=== PATIENT | female | born 1955 | race Caucasian/White ===

== ENCOUNTER 2018-06-23 07:19 | Day surgery (SDC) | payer MEDICARE, MEDICAID ==
[~2018-06-23 07:19] MED LIST: Cefuroxime 10 MG/ML SYRINGE EYELF SCH; Lidocaine 1% PF 2 ML SDV INJECT SCH; Pilocarpine 4% Ophth Soln 15 ML Bot EYELF SCH
--- NOTE | 2018-06-23 07:42 | PCM.PREANE ---
Preanesthetic Assessment - Anesthesia/Transfusion/Family Hx Anesthesia History: Prior Anesthesia Without Reaction Family History of Anesthesia Reaction: No Transfusion History: No Prior Transfusion(s) - Review of Systems General: No Symptoms Pulmonary: No Symptoms Cardiovascular: No Symptoms Gastrointestinal: No Symptoms Neurological: No Symptoms Other: Reports: None - Physical Assessment NPO Status Date: 06/22/18 NPO Status Time: 22:00 Pulse: 96 O2 Sat by Pulse Oximetry: 95 Respiratory Rate: 16 Blood Pressure: 153/92 Temperature: 97.4 C Height: 1.4 m Weight: 51.256 kg ASA Class: 2 Mental Status: Alert & Oriented x3 Airway Class: Mallampati = 2 Dentition: Reports: Normal Dentition Thyro-Mental Finger Breadths: 3 Mouth Opening Finger Breadths: 3 ROM/Head Extension: Full Lungs: Clear to Auscultation, Normal Respiratory Effort Cardiovascular: Regular Rate, Regular Rhythm - Allergies Allergies/Adverse Reactions: Allergies Allergy/AdvReac Type Severity Reaction Status Date / Time atorvastatin [From Lipitor] Allergy Chest Pain Verified 06/22/18 14:45 fentanyl Allergy Numbness Verified 06/22/18 14:45 - Acknowledgements Anesthesia Type Planned: MAC Pt an Appropriate Candidate for the Planned Anesthesia: Yes Alternatives and Risks of Anesthesia Discussed w Pt/Guardian: Yes Pt/Guardian Understands and Agrees with Anesthesia Plan: Yes PreAnesthesia Questionnaire HEENT History: Reports: Cataract Cardiovascular History: Reports: High Cholesterol, Hypertension Respiratory History: Reports: None Gastrointestinal History: Reports: GERD (takes OTC with relief) Genitourinary History: Reports: None Musculoskeletal History: Reports: Arthritis, Osteoarthritis, Other (See Below) ( osteogenisis imperfecta-uses walker) Neurological History: Reports: None Psychiatric History: Reports: None Endocrine/Metabolic History: Reports: None - Past Surgical History Head Surgeries/Procedures: Reports: None HEENT Surgical History: Reports: Tonsillectomy GI Surgical History: Reports: Colonoscopy Neurological Surgical History: Reports: Other (See Below) (Davide ruiz) Musculoskeletal Surgical History: Reports: Shoulder Replacement ((L)), Other ( See Below) ((L) ankle) - SUBSTANCE USE Smoking Status *Q: Never Smoker - HOME MEDS Home Medications: Home Meds Lisinopril 20 mg PO DAILY 06/22/18 [History] Meloxicam 15 mg PO DAILY 06/22/18 [History] Morphine [MS Contin] 15 mg PO BID 06/22/18 [History] Morphine [MS Contin] 30 mg PO BID 06/22/18 [History] Rosuvastatin [Crestor] 5 mg PO DAILY 06/22/18 [History] Venlafaxine [Effexor XR] 75 mg PO DAILY 06/22/18 [History] - CURRENT (IN HOUSE) MEDS Current Meds: Current Medications Brimonidine Tartrate (Alphagan 0.2% Ophth Soln) 0 ml EYELF ASDIRECTED NORMAN Stop: 06/23/18 18:00 Cefuroxime Sodium (Zinacef) 0 mg EYELF ASDIRECTED NORMAN Stop: 06/23/18 18:00 Lidocaine HCl (Xylocaine-Mpf 1%) 0 ml INJECT ASDIRECTED NORMAN Stop: 06/23/18 18:00 Phenylephrine HCl (Ramez-Synephrine 2.5% Ophth Soln) 0 ml EYELF ASDIRECTED NORMAN Stop: 06/23/18 18:00 Pilocarpine HCl (Pilocar 4% Ophth Soln) 0 ml EYELF ASDIRECTED NORMAN Stop: 06/23/18 18:00 Polymyxin/Trimethoprim Sulfate (Polytrim Ophth Soln) 0 ml EYELF ASDIRECTED NORMAN Stop: 06/23/18 18:00 Tetracaine HCl (Tetracaine 0.5% Steri-Unit Gertrudis) 0 ml EYELF ASDIRECTED NORMAN Stop: 06/23/18 18:00 Tropicamide (Mydriacyl 1% Ophth Soln) 0 ml EYELF ASDIRECTED NORMAN Stop: 06/23/18 18:00
[2018-06-23] MEDS: Polymyxin B/Trimethoprim 10 ML Bottle EYELF SCH ×3 (08:00→09:02)
[2018-06-23] MEDS: Brimonidine 0.2% Ophth Soln 5 ML Bottle EYELF SCH ×3 (08:03→09:02)
[2018-06-23] MEDS: Phenylephrine 2.5% Ophth Soln 2 ML Bot EYELF SCH ×5 (08:06→08:41)
[2018-06-23] MEDS: Tropicamide 1% Ophth Soln 15 ML Bottle EYELF SCH ×4 (08:09→08:33)
[2018-06-23] MEDS: Tetracaine HCl/PF 0.5% 4 ML Bottle EYELF SCH ×4 (08:35→08:52)
--- NOTE | 2018-06-23 09:01 | PCM48HPAN ---
Post Anesthesia Note - EVALUATION WITHIN 48HRS OF ANESTHETIC Vital Signs in Normal Range: Yes Patient Participated in Evaluation: Yes Respiratory Function Stable: Yes Airway Patent: Yes Cardiovascular Function Stable: Yes Hydration Status Stable: Yes Pain Control Satisfactory: Yes Nausea and Vomiting Control Satisfactory: Yes Mental Status Recovered: Yes Pulse Rate: 98 SaO2: 96 Resp Rate: 17 Temperature: 97.4 C Blood Pressure: 139/91
== END 2018-06-23 09:19 | disposition home or self-care (01) ==
LOC: JD.SDS 07:19
PROVIDERS: ATTEND Ophthalmology
DX: H25.813 Combined forms of age-related cataract, bilateral (principal); H35.341 Macular cyst, hole, or pseudohole, right eye; H35.3131 Nonexudative age-related macular degeneration, bilateral, early dry stage; H35.373 Puckering of macula, bilateral; H50.05 Alternating esotropia; I10 Essential (primary) hypertension; E78.00 Pure hypercholesterolemia, unspecified; M19.90 Unspecified osteoarthritis, unspecified site; Z88.8 Allergy status to other drugs, medicaments and biological substances; Z79.1 Long term (current) use of non-steroidal anti-inflammatories (NSAID); Z79.891 Long term (current) use of opiate analgesic; Z79.899 Other long term (current) drug therapy
CPT/HCPCS: 66984; A9270; C1780; J0697; J2001

== ENCOUNTER 2018-07-21 10:13 | Day surgery (SDC) | payer MEDICARE, MEDICAID ==
[~2018-07-21 10:13] MED LIST changes: -Cefuroxime 10 MG/ML SYRINGE EYELF SCH; +Cefuroxime 10 MG/ML SYRINGE EYERT SCH; -Pilocarpine 4% Ophth Soln 15 ML Bot EYELF SCH; +Pilocarpine 4% Ophth Soln 15 ML Bot EYERT SCH
[2018-07-21] MEDS ORDERED: LORazepam 0.5 MG Tab PO SCH (10:55)
[2018-07-21] MEDS: Polymyxin B/Trimethoprim 10 ML Bottle EYERT SCH ×3 (10:57→13:00)
[2018-07-21] MEDS: Brimonidine 0.2% Ophth Soln 5 ML Bottle EYERT SCH ×2 (11:02→11:50)
[2018-07-21] MEDS: Phenylephrine 2.5% Ophth Soln 2 ML Bot EYERT SCH ×5 (11:07→12:41)
[2018-07-21] MEDS: Tropicamide 1% Ophth Soln 15 ML Bottle EYERT SCH ×4 (11:12→12:13)
--- NOTE | 2018-07-21 11:15 | PCM.PREANE ---
Preanesthetic Assessment - Procedure Proposed Procedure: cataract right eye - Anesthesia/Transfusion/Family Hx Anesthesia History: Prior Anesthesia Without Reaction Family History of Anesthesia Reaction: No Transfusion History: No Prior Transfusion(s) - Review of Systems General: No Symptoms Pulmonary: No Symptoms Cardiovascular: No Symptoms Gastrointestinal: No Symptoms Neurological: No Symptoms Other: Reports: None - Physical Assessment NPO Status Date: 07/21/18 NPO Status Time: 04:00 (cookie and coffee) Pulse: 93 O2 Sat by Pulse Oximetry: 97 Respiratory Rate: 16 Blood Pressure: 152/93 Height: 4 ft 7 in Weight: 50.802 kg ASA Class: 2 Mental Status: Alert & Oriented x3 Airway Class: Mallampati = 1 Dentition: Reports: Broken Tooth/Teeth, Missing Tooth/Teeth, Caries Thyro-Mental Finger Breadths: 3 Mouth Opening Finger Breadths: 3 ROM/Head Extension: Full Lungs: Clear to Auscultation, Normal Respiratory Effort Cardiovascular: Regular Rate, Regular Rhythm - Allergies Allergies/Adverse Reactions: Allergies Allergy/AdvReac Type Severity Reaction Status Date / Time atorvastatin [From Lipitor] AdvReac Chest Pain Verified 07/21/18 11:06 fentanyl AdvReac Numbness Verified 07/21/18 11:06 - Blood Blood Available: No - Acknowledgements Anesthesia Type Planned: MAC Pt an Appropriate Candidate for the Planned Anesthesia: Yes Alternatives and Risks of Anesthesia Discussed w Pt/Guardian: Yes Pt/Guardian Understands and Agrees with Anesthesia Plan: Yes PreAnesthesia Questionnaire HEENT History: Reports: Cataract Cardiovascular History: Reports: High Cholesterol, Hypertension Respiratory History: Reports: None Gastrointestinal History: Reports: GERD (takes OTC with relief) Genitourinary History: Reports: None Musculoskeletal History: Reports: Arthritis, Osteoarthritis, Other (See Below) ( osteogenisis imperfecta-uses walker) Neurological History: Reports: None Psychiatric History: Reports: None Endocrine/Metabolic History: Reports: None - Past Surgical History Head Surgeries/Procedures: Reports: None HEENT Surgical History: Reports: Tonsillectomy GI Surgical History: Reports: Colonoscopy Neurological Surgical History: Reports: Other (See Below) (Davide ruiz) Musculoskeletal Surgical History: Reports: Shoulder Replacement ((L)), Other ( See Below) ((L) ankle) - SUBSTANCE USE Smoking Status *Q: Never Smoker Tobacco Use Within Last Twelve Months: No Second Hand Smoke Exposure: No Days Per Week of Alcohol Use: 0 Recreational Drug Use History: No - HOME MEDS Home Medications: Home Meds Lisinopril 20 mg PO DAILY 06/22/18 [History] Meloxicam 15 mg PO DAILY 06/22/18 [History] Morphine [MS Contin] 15 mg PO BID 06/22/18 [History] Morphine [MS Contin] 30 mg PO BID 06/22/18 [History] Rosuvastatin [Crestor] 5 mg PO DAILY 06/22/18 [History] Venlafaxine [Effexor XR] 75 mg PO DAILY 06/22/18 [History] Lutein/Minerals/Vit A,C & E [Ocuvite] 1 tab PO DAILY 07/20/18 [History] - CURRENT (IN HOUSE) MEDS Current Meds: Current Medications Brimonidine Tartrate (Alphagan 0.2% Ophth Soln) 0 ml EYERT ASDIRECTED NORMAN Stop: 07/21/18 23:00 Last Admin: 07/21/18 11:02 Dose: 1 drop Cefuroxime Sodium (Zinacef) 0 mg EYERT ASDIRECTED NORMAN Stop: 07/21/18 23:00 Lidocaine HCl (Xylocaine-Mpf 1%) 0 ml INJECT ASDIRECTED NORMAN Stop: 07/21/18 23:00 Lorazepam (Ativan) 0.5 mg PO ONETIME NORMAN Stop: 07/21/18 18:00 Last Admin: 07/21/18 11:01 Dose: 0.5 mg Phenylephrine HCl (Ramez-Synephrine 2.5% Ophth Soln) 0 ml EYERT ASDIRECTED NORMAN Stop: 07/21/18 23:00 Last Admin: 07/21/18 11:07 Dose: 1 drop Pilocarpine HCl (Pilocar 4% Ophth Soln) 0 ml EYERT ASDIRECTED NORMAN Stop: 07/21/18 23:00 Polymyxin/Trimethoprim Sulfate (Polytrim Ophth Soln) 0 ml EYERT ASDIRECTED NORMAN Stop: 07/21/18 23:00 Last Admin: 07/21/18 10:57 Dose: 1 drop Tetracaine HCl (Tetracaine 0.5% Steri-Unit Gertrudis) 0 ml EYERT ASDIRECTED NORMAN Stop: 07/21/18 23:00 Tropicamide (Mydriacyl 1% Ophth Soln) 0 ml EYERT ASDIRECTED NORMAN Stop: 07/21/18 23:00
[2018-07-21] MEDS: Tetracaine HCl/PF 0.5% 4 ML Bottle EYERT SCH ×5 (12:25→13:00)
--- NOTE | 2018-07-21 13:05 | PCM48HPAN ---
Post Anesthesia Note - EVALUATION WITHIN 48HRS OF ANESTHETIC Vital Signs in Normal Range: Yes Patient Participated in Evaluation: Yes Respiratory Function Stable: Yes Airway Patent: Yes Cardiovascular Function Stable: Yes Hydration Status Stable: Yes Pain Control Satisfactory: Yes Nausea and Vomiting Control Satisfactory: Yes Mental Status Recovered: Yes Pulse Rate: 96 SaO2: 96 Resp Rate: 20 Blood Pressure: 142/92
== END 2018-07-21 13:10 | disposition home or self-care (01) ==
LOC: JD.SDS 10:13
PROVIDERS: ATTEND Ophthalmology
DX: H25.811 Combined forms of age-related cataract, right eye (principal); I10 Essential (primary) hypertension; E78.00 Pure hypercholesterolemia, unspecified; M19.90 Unspecified osteoarthritis, unspecified site; H52.31 Anisometropia; H35.373 Puckering of macula, bilateral; H50.05 Alternating esotropia; Z98.42 Cataract extraction status, left eye; Z96.1 Presence of intraocular lens; Z79.899 Other long term (current) drug therapy
CPT/HCPCS: 66984; A9270; J0697; J2001; C1780

== ENCOUNTER 2019-12-20 20:50 | Emergency (ER) | payer MEDICARE, MEDICAID ==
[2019-12-20] MEDS ORDERED: Diphtheria,Pertussis(Acell),Tetanus Vaccine 0.5 ML Syringe IM ONE (21:27)
[2019-12-20] MEDS ORDERED: Lidocaine 1% 10 ML MDV INJECT ONE (21:27)
--- NOTE | 2019-12-20 21:33 | EDM.PDOC ---
ED HPI GENERAL MEDICAL PROBLEM - General Chief Complaint: Upper Extremity Injury/Pain Stated Complaint: ARM INJURY Time Seen by Provider: 12/20/19 21:11 Source of Information: Reports: Patient, RN Notes Reviewed History Limitations: Reports: No Limitations - History of Present Illness INITIAL COMMENTS - FREE TEXT/NARRATIVE: Patient is a 64-year-old female who presents to the ED for the evaluation of her right wrist pain. Patient notes that she has a history of osteogenesis imperfecta. She states that tonight she tripped and fell, this resulted in a right wrist injury, and a laceration to the crown of her head. She did not have any loss of consciousness, and she is not on any blood thinners. This laceration is roughly 2 cm in length, and fairly linear. This is oozing blood at the time of triage. There is bruising noted to the dorsal surface of the right wrist, and a slight deformity is noted. Patient states she can still wiggle her fingers, however is very painful to do so. She denies any numbness or tingling into her hand. Patient notes she is right-hand dominant, she cannot remember the last time she had a tetanus booster. Patient states that she is p rescribed MS Contin, and took 45 mg prior to coming to the ER. States that this did help the pain. Otherwise she complains of no sick-like symptoms, fever/chills, cough/shortness of breath, nausea/vomiting/diarrhea. Right Wrist Pain Score (Numeric/FACES): 5 - Related Data Allergies Allergy/AdvReac Type Severity Reaction Status Date / Time atorvastatin [From Lipitor] AdvReac Chest Pain Verified 07/21/18 11:06 fentanyl AdvReac Numbness Verified 07/21/18 11:06 Home Meds: Home Meds Lisinopril 20 mg PO DAILY 06/22/18 [History] Meloxicam 15 mg PO DAILY 06/22/18 [History] Morphine [MS Contin] 15 mg PO BID 06/22/18 [History] Morphine [MS Contin] 30 mg PO BID 06/22/18 [History] Rosuvastatin [Crestor] 5 mg PO DAILY 06/22/18 [History] Venlafaxine [Effexor XR] 75 mg PO DAILY 06/22/18 [History] Lutein/Minerals/Vit A,C & E [Ocuvite] 1 tab PO DAILY 07/20/18 [History] Past Medical History HEENT History: Reports: Cataract Cardiovascular History: Reports: High Cholesterol, Hypertension Gastrointestinal History: Reports: GERD Musculoskeletal History: Reports: Arthritis, Osteoarthritis, Other (See Below) - Past Surgical History HEENT Surgical History: Reports: Tonsillectomy GI Surgical History: Reports: Colonoscopy Neurological Surgical History: Reports: Other (See Below) Musculoskeletal Surgical History: Reports: Shoulder Replacement, Other (See Below) Social & Family History - Tobacco Use Smoking Status *Q: Never Smoker Review of Systems - Review of Systems Review Of Systems: Comprehensive ROS is negative, except as noted in HPI. ED EXAM, GENERAL - Physical Exam Exam: See Below Exam Limited By: No Limitations General Appearance: Alert, WD/WN, No Apparent Distress Eye Exam: Bilateral Eye: EOMI, Normal Inspection, PERRL Ears: Normal External Exam, Normal Canal, Hearing Grossly Normal, Normal TMs Nose: Normal Inspection Throat/Mouth: Normal Inspection, Normal Lips, Normal Teeth, Normal Gums, Normal Oropharynx, Normal Voice, No Airway Compromise Head: Normocephalic, Other (2cm linear laceration to crown of head) Neck: Normal Inspection, Supple, Non-Tender, Full Range of Motion Respiratory/Chest: No Respiratory Distress, Lungs Clear, Normal Breath Sounds, No Accessory Muscle Use, Chest Non-Tender Cardiovascular: Normal Peripheral Pulses, Regular Rate, Rhythm, No Murmur Peripheral Pulses: 2+: Radial (L), Radial (R) Extremities: Normal Capillary Refill, Limited Range of Motion (d/t pain in right wrist) Neurological: Alert, Oriented, Normal Cognition, No Motor/Sensory Deficits Psychiatric: Normal Affect, Normal Mood Skin Exam: Warm, Dry, Normal Color, No Rash, Ecchymosis (noted to dorsal surface of right wrist), Wound/Incision (2cm linear laceration to the crown of her head) ED TRAUMA EXTREMITY PROCEDURES - Laceration/Wound Repair Posterior [place] Head Lac/Wound Length In cm: 2 Appearance: Linear, Clean Distal NVT: Neuro & Vascular Intact, No Tendon Injury Anesthetic Type: Local Local Anesthesia - Lidocaine (Xylocaine): 1% Plain Skin Prep: Chlorhexidine (Hibiciens), Saline Exploration/Debridement/Repair: Wound Explored, In a Bloodless Field, Explored to Base, No Foreign Material Found Closed With: Aravind (4) Sterile Dressing Applied: Nurse Tetanus Status Addressed: Yes (updated at today's visit) Complications: No - Splinting Right Upper Extremity Splint Site: right wrist Pre-Procedure NV Status: Normal Post-Procedure NV Status: Normal Splint Material: Fiberglass Splint Design: Gutter (ulnar gutter) Applied & Form Fitted By: Provider, Nurse Provider Post-Splint Application NV Check: NV Status Normal, Good Position Complications: No Course - Vital Signs Last Recorded V/S: Last Vital Signs Temp 97.2 F 12/20/19 21:14 Pulse 92 12/20/19 21:14 Resp 16 12/20/19 21:14 BP 125/88 12/20/19 21:14 Pulse Ox 98 12/20/19 21:14 - Orders/Labs/Meds Orders: Active Orders 24 hr Category Date Time Status Vaccines to be Administered [RC] PER UNIT ROUTINE Care 12/20/19 21:27 Ordered Wrist Comp Min 3V Rt [CR] Stat Exams 12/20/19 21:21 Ordered Meds: Medications Discontinued Medications Generic Name Dose Route Start Last Admin Trade Name Pricilla PRN Reason Stop Dose Admin Diphtheria/Tetanus/Acell Pertussis 0.5 ml 12/20/19 21:27 12/20/19 21:43 Adacel IM 12/20/19 21:28 Not Given .ONCE ONE Lidocaine HCl 10 ml 12/20/19 21:27 Xylocaine 1% INJECT 12/20/19 21:28 ONETIME ONE Departure - Departure Time of Disposition: 22:24 Disposition: Home, Self-Care 01 Condition: Good Clinical Impression: Laceration of head Qualifiers: Encounter type: initial encounter Location of open wound of head: scalp Foreign body presence: without foreign body Qualified Code(s): S01.01XA - Laceration without foreign body of scalp, initial encounter Distal radial fracture Qualifiers: Encounter type: initial encounter Fracture type: closed Fracture morphology: unspecified fracture morphology Laterality: right Qualified Code(s): S52.501A - Unspecified fracture of the lower end of right radius, initial encounter for closed fracture Fracture of right ulnar styloid Qualifiers: Encounter type: initial encounter Fracture type: closed Fracture alignment: nondisplaced Qualified Code(s): S52.614A - Nondisplaced fracture of right ulna styloid process, initial encounter for closed fracture - Discharge Information *PRESCRIPTION DRUG MONITORING PROGRAM REVIEWED*: No *COPY OF PRESCRIPTION DRUG MONITORING REPORT IN PATIENT PEDRO: No Instructions: Wrist Fracture Treated With Immobilization, [id number], Sutures, [place], or Adhesive Wound Closure, [id number] Referrals: Jason Feliz MD [Primary Care Provider] - Forms: ED Department Discharge Additional Instructions: You have been evaluated in the ED for your injuries after your fall today. [place] will need to stay in for 5-7 days. You may return to the ED or any clinic for removal. Please keep this area clean and dry, you may cleanse with regular soap and water. No vigorous scrubbing. Please try to avoid submerging the affected area in water for prolonged periods of time until the sutures are removed. Watch out for signs of infection like increased redness, swelling, pain at the laceration site, or if you should develop any fevers or chills. Your x-ray of your right wrist demonstrated a fracture of your distal radius and ulnar styloid. Please use ice as tolerated to the affected area. You may take Tylenol 500 mg or ibuprofen 600mg q6 hrs for pain relief. Please do so until you have a tolerable level of pain with activity. Do not exceed 4000mg Tylenol, Do not exceed 3200mg ibuprofen in a 24 hour time period. You may continue to take your prescribed pain medications as directed for pain management. Please call Ortho for follow-up and further evaluation Dr. Ureña is our orthopedic surgeon, his office number is [phone]. Please call and set up an appointment as soon as possible for further management. Please return to ED if your symptoms should change or worsen. Sepsis Event Note (ED) - Evaluation Sepsis Screening Result: No Definite Risk - Focused Exam Vital Signs: Vital Signs Temp Pulse Resp BP Pulse Ox 12/20/19 21:14 97.2 F 92 16 125/88 98 - My Orders Last 24 Hours: My Active Orders 12/20/19 21:21 Wrist Comp Min 3V Rt [CR] Stat 12/20/19 21:27 Vaccines to be Administered [RC] PER UNIT ROUTINE - Assessment/Plan Last 24 Hours: My Active Orders 12/20/19 21:21 Wrist Comp Min 3V Rt [CR] Stat 12/20/19 21:27 Vaccines to be Administered [RC] PER UNIT ROUTINE
--- NOTE | 2019-12-21 06:54 | CR ---
Right wrist: 3 views right wrist were obtained. Comparison: No previous right wrist study. Comminuted distal radial fracture is seen. Posterior tilt of the distal radial articular margin is seen from posterior impaction and articular extension. Fracture is also noted within the ulnar is styloid process. Bony structures are osteopenic. Soft tissue swelling is noted. Impression: 1. Comminuted distal right radial fracture with posterior impaction and articular extension. 2. Ulnar styloid avulsion fracture. 3. Other findings as noted above. Diagnostic code #3 This report was dictated in MDT
== END 2019-12-20 22:30 | disposition home or self-care (01) ==
LOC: JD.ED 20:50
DX: S52.614A Nondisplaced fracture of right ulna styloid process, initial encounter for closed fracture (principal); S52.501A Unspecified fracture of the lower end of right radius, initial encounter for closed fracture; S01.01XA Laceration without foreign body of scalp, initial encounter; E78.00 Pure hypercholesterolemia, unspecified; I10 Essential (primary) hypertension; M19.90 Unspecified osteoarthritis, unspecified site; Z79.899 Other long term (current) drug therapy; Z88.8 Allergy status to other drugs, medicaments and biological substances; Z88.4 Allergy status to anesthetic agent; Z23 Encounter for immunization; W01.0XXA Fall on same level from slipping, tripping and stumbling without subsequent striking against object, initial encounter
CPT/HCPCS: 12001; 29125; 73110; 99283; J2001; 90471; 99282